=== PATIENT | male | born 1995 | race Caucasian/White ===

== ENCOUNTER 2018-03-25 15:56 | Emergency (ER) | payer OTHER ==
[2018-03-25] MEDS ORDERED: IBUP-136 PO (16:05)
--- NOTE | 2018-03-25 16:41 | ER Report ---
History and Physical Time Seen By MD: 16:10 Hx. of Stated Complaint: PT WAS HIKING AND TURNED R ANKLE, FELT CRACKLES HPI/ROS CHIEF COMPLAINT: right ankle injury HISTORY OF PRESENT ILLNESS: [place] when he suffered inversion injury to r ankle; he felt a pop or crack, did not fall and hit head or strike hand. He was able to ambulate down the [place] with help from his lenny. REVIEW OF SYSTEMS: Constitutional: No fever, no chills. Eyes: No discharge. ENT: No sore throat. Cardiovascular: No chest pain, no palpitations. Gastrointestinal: No abdominal pain, no vomiting. Musculoskeletal: no knee pain; pt does complain of l great toe pain subsequent to injury 2 wks ago Skin: no abrasions/lacerations Neurological: No headache or head injury Remainder of the 14 system rev: No Allergies: Coded Allergies: No Known Drug Allergies (Unverified , 03/25/18) Home Meds Reported Medications Ibuprofen (IBUPROFEN) 200 Mg Capsule, 1 CAP PO Q6H, CAPSULE 03/25/18 Past Medical/Surgical History no prior fractures, no medical problems Hx Substance Use Disorder: No Hx Alcohol Use: No Constitutional Vital Sign - Last 24 Hours 03/25/18 16:01 Temp 99.3 Pulse 102 Resp 16 B/P (MAP) 119/86 Pulse Ox 97 O2 Delivery Room Air Physical Exam General Appearance: [The patient is alert, has no immediate need for airway protection and no signs of toxicity.] Eyes: Pupils equal and round no pallor or injection. Respiratory: There are no retractions, lungs are clear to auscultation. Cardiovascular: Regular rate and rhythm. Gastrointestinal: Abdomen is soft and non tender, no masses, bowel sounds normal. Neurological: alert, oriented, nad Skin: Warm and dry, no rashes. Musculoskeletal: no knee ttp, v sm abrasion r patella, no laceration, no fibula head ttp, + ttp r superior lat malleolus. no bony stepoffs, no medial ttp , neg AD of ankle, FROM toes, cr < 2 sec, nl lt to L great toe ttp at mtp, slightly decreased rom, mild erythema. CR < 2 sec [DIFFERENTIAL DIAGNOSIS: After history and physical exam differential diagnosis was considered for ankle sprain/fracture, maissoneuve fx, great toe fracture/ sprain, closed head injury, other msk injury Medical Decision Making EKG/Imaging Imaging X-ray: r ankle was obtained. I viewed the images myself on the PACS system. My interpretation of the images is: no fracture. Pt understands the radiologist has not yet read xray X-ray: left toe was obtained. I viewed the images myself on the PACS system. My interpretation of the images is: oblique fx of l mt, minimal displacement, subacute. Pt aware radiologist has not yet read xray ED Course/Re-evaluation ED Course pt comfortable, refuses pain medications, ambulates after shonna wrap Decision to Disposition Date: Mar 25, 2018 Decision to Disposition Time: 17:04 Depart Departure Latest Vital Signs Vital Signs Date Time Temp Pulse Resp B/P (MAP) Pulse Ox O2 Delivery O2 Flow Rate FiO2 03/25/18 16:01 99.3 102 16 119/86 97 Room Air Impression: Primary Impression: SPRAIN OF UNSPECIFIED LIGAMENT OF RIGHT ANKLE, INIT ENCNTR Additional Impression: Fracture of phalanx of left great toe Condition: Improved Disposition: HOME OR SELF-CARE Patient Instructions: Ankle Sprain (ED), Toe Fracture (ED) Additional Instructions: the radiologist will subsequently review your films. We will contact you if there are any other findings. Problem Qualifiers BALBIR JOSHUA MD Mar 25, 2018 16:41
[2018-03-25 16:50] VITALS: BP 118/79
--- NOTE | 2018-03-25 17:03 | RADIOLOGY IMAGING REPORT ---
FACILITY: [facility] - [place] PATIENT NAME: Veronica Willis : 1995 MR: [id number] V: [id number] EXAM DATE: ORDERING PHYSICIAN: BALBIR JOSHUA TECHNOLOGIST: Location: [facility] Patient: Veronica Willis : 1995 Visit/Account:[id number] Date of Sevice: 03/25/2018 Exam type: TOE LEFT FOOT GREAT TOE History: Swelling of left great toe Comparison: None. Findings: There is an oblique lucency traversing the mid to distal proximal phalanx of the left great toe. Thi s likely represents a subacute fracture. There appears to be some callus formation along the dorsal aspect of this bone. There is adjacent soft tissue swelling. IMPRESSION: 1. Findings are very suggestive of a subacute fracture through the proximal phalanx of the left grea t toe as described above Report Dictated By: Mary Ellen Hobson MD at 03/25/2018 4:57 PM Report E-Signed By: Mary Ellen Hobson MD at 03/25/2018 5:00 PM WSN:[email or web address]
--- NOTE | 2018-03-25 17:07 | RADIOLOGY IMAGING REPORT ---
[place] [facility] [place] Veronica Willis : 1995 MR: [id number] V: [id number] EXAM DATE: ORDERING PHYSICIAN: BALBIR JOSHUA TECHNOLOGIST: Location: [facility] [place] Patient: Veronica Willis : 1995 Visit/Account:[id number] Date of Sevice: 03/25/2018 Exam type: ANKLE 3 VIEW MIN RIGHT History: r malleolus ttp, inversion injury Comparison: None. Findings: There is a very faint horizontal lucency traversing the distal metaphyseal epiphyseal junction of the right fibula which likely represents a growth plate remnant. A nondisplaced fracture cannot be enti rely ruled out. The ankle mortise appears intact.. On the oblique view there is a faint linear lucency traversing the base of the right second metatarsa l. Clinical correlation with symptoms needed IMPRESSION: 1. Faint horizontal lucency traversing the distal metaphyseal epiphyseal junction of the right fibul a likely represents a growth plate remnant. A nondisplaced fracture cannot be entirely ruled out. T he ankle mortise appears intact On the oblique view there suggestion of a faint lucency traversing the base of the right second metat arsal. Correlation with patient symptoms needed to exclude a nondisplaced fracture Report Dictated By: Mary Ellen Hobson MD at 03/25/2018 5:00 PM Report E-Signed By: Mary Ellen Hobson MD at 03/25/2018 5:04 PM WSN:[email or web address]
== END 2018-03-25 17:10 | disposition home or self-care (01) ==
LOC: ER 16:02 → EDSTATUS 17:14
DX: S93.401A Sprain of unspecified ligament of right ankle, initial encounter (principal)
CPT/HCPCS: 99283